=== PATIENT | female | born 2000 | race Asian ===

== ENCOUNTER 2022-04-22 11:53 | Emergency (ER) | payer BC ==
[~2022-04-22] VITALS: Ht 157.5 cm; Wt 49.9 kg
[2022-04-22 12:15] VITALS: BP 130/79; TEMP 97.6
== END 2022-04-22 14:42 | disposition home or self-care (01) ==
LOC: ED 11:53
DX: R09.1 Pleurisy (principal)
CPT/HCPCS: 81025; 85379; 99283